=== PATIENT | male | born 1965 ===

== ENCOUNTER 2018-10-17 23:30 | Emergency (ER) | payer SELFPAY ==
[~2018-10-17] VITALS: Ht 182.9 cm; Wt 93.2 kg
[~2018-10-17 23:30] MED LIST: ARIP5TAB13 PO; DIPH25CA61 PO
--- NOTE | 2018-10-18 00:13 | NUR ---
pt presents to ed with c/o dizziness and headache after falling on ice yesterday. denies loc. pt a&ox4, neuro intact. bilateral grasp equal, no drift. resps even and unlabored. 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 call light in reach. awaiting head ct and dispo. report to LARISA jacobs.
--- NOTE | 2018-10-18 01:00 | NUR ---
Report received and care assumed. Pt resting on gurney with no needs expressed. Answering questions appropriately with clear speech. Moving all extremities. Call light in reach. VSS. Awaiting CT results.
--- NOTE | 2018-10-18 01:30 | NUR ---
ERP AT BEDSIDE TO RECHECK
[2018-10-18 01:47] VITALS: BP 133/83
== END 2018-10-18 01:49 | disposition home or self-care (01) ==
LOC: ED 10-18 00:23
DX: S06.0X0A Concussion without loss of consciousness, initial encounter (principal); M25.531 Pain in right wrist; Z88.0 Allergy status to penicillin; W00.0XXA Fall on same level due to ice and snow, initial encounter; Y93.29 Activity, other involving ice and snow; Y92.89 Other specified places as the place of occurrence of the external cause; Y99.8 Other external cause status
CPT/HCPCS: 70450; 99284

== ENCOUNTER 2020-07-26 23:32 | Emergency (ER) | payer SELFPAY ==
[~2020-07-26] VITALS: Ht 182.9 cm; Wt 100.0 kg
--- NOTE | 2020-07-26 23:48 | NUR ---
BIB [facility] FOR INCREASING SOB. PT STATES SYMPTOMS STARTED 7 DAYS AGO. 3 DAYS AGO PT TESTED POSTIVE FOR COVID AT [facility]. APPROX 1 HR PT HAD INCREASED SOB WHILE LAYING DOWN. PT IS 96-97% ON RA.
[2020-07-27 00:06] LABS: BASOPHILS % (AUTO) 0 % (0-1); EOSINOPHILS % (AUTO) 1 % (1-7); LYMPHOCYTES % (AUTO) 16 % (22-44); MD NO; MEAN CORPUSCULAR HEMOGLOBIN 31.6 pg (27.5-34.5); MEAN CORPUSCULAR HGB CONC 34.8 g/dL (33.2-36.2); MEAN PLATELET VOLUME 8.4 fL (7.4-10.4); MONOCYTES % (AUTO) 7 % (2-9); NEUTROPHILS % (AUTO) 76 % (42-75); PLATELET COUNT 205 x10^3/uL (130-400); RED CELL DISTRIBUTION WIDTH 13.2 % (9.4-14.8)
[2020-07-27 00:12] LABS: ALBUMIN 2.8 g/dL (3.4-5.0); ANION GAP 8 mmol/L (5-15); CALCIUM 8.8 mg/dL (8.5-10.1); CHLORIDE 103 mmol/L (98-107); CREATININE 0.92 mg/dL (0.7-1.3)
[2020-07-27 00:16] LABS: TROPONIN I < 0.015 ng/mL (0.000-0.045)
--- NOTE | 2020-07-27 00:48 | NUR ---
PT RESTING, NO NEEDS AT THIS TIME
--- NOTE | 2020-07-27 02:00 | NUR ---
PT RESTING. NO NEEDS AT THIS TIME
[2020-07-27] MEDS ORDERED: OMNIPAQUE 350 MG/ML, 75ML BOTTLE ONE (02:35)
--- NOTE | 2020-07-27 03:02 | NUR ---
NO NEEDS, PENDING CTA RESULTS.
--- NOTE | 2020-07-27 04:15 | NUR ---
PT REQUESTING URINAL. PENDING CT RESULTS.
[2020-07-27] MEDS ORDERED: DEXAMETHASONE 4 MG TABLET PO ONE (04:30)
[2020-07-27] MEDS ORDERED: DEXAMETHASONE 4 MG TABLET ONE (04:41)
[2020-07-27 04:46] VITALS: BP 125/83
== END 2020-07-27 06:29 | disposition home or self-care (01) ==
LOC: ED 07-27 01:46
DX: U07.1 COVID-19 (principal); J12.89 Other viral pneumonia; R59.9 Enlarged lymph nodes, unspecified; R00.0 Tachycardia, unspecified; R07.9 Chest pain, unspecified; F17.210 Nicotine dependence, cigarettes, uncomplicated
CPT/HCPCS: 36415; 71045; 71275; 80048; 82040; 84484; 85025; 93005; 99285; 99406; Q9967

== ENCOUNTER 2021-01-26 10:21 | Emergency (ER) | payer BC ==
[~2021-01-26] VITALS: Ht 182.9 cm; Wt 107.7 kg
[2021-01-26 10:23] VITALS: BP 203/97
--- NOTE | 2021-01-26 11:02 | NUR ---
Assumed care from Andrew. RODNEY bedside.
== END 2021-01-26 11:29 | disposition home or self-care (01) ==
LOC: ED 10:38
DX: K08.89 Other specified disorders of teeth and supporting structures (principal); Z88.0 Allergy status to penicillin; I10 Essential (primary) hypertension
CPT/HCPCS: 99283